=== PATIENT | female | born 1955 | race Caucasian/White ===

== ENCOUNTER 2024-06-09 12:51 | Outpatient (OUT) | payer MEDICARE, OTHER, SELFPAY ==
--- NOTE | 2024-06-09 | XR_ITS ---
The [address] [address] Patient Name: MICHELLE MEDRANO MRN: [id number] date: 1955 Sex: F Assigned Patient Location: Current Patient Location: Accession/Order Number: [id number] Exam Date: 06/09/2024 13:54 Report Date: 06/09/2024 13:55 At the request of: GABRIEL RDZ Procedure: XR lumbar spine min 4V LUMBAR SPINE - 4 views CLINICAL HISTORY: Low back pain for one week. COMPARISON: None FINDINGS: Levoscoliosis. Vertebral body heights appear maintained. Endplate and facet joint degenerative changes without significant disc height loss. SI joints demonstrate degenerative change. No pathological motion on flexion or extension views. XR/XR lumbar spine min 4V IMPRESSION: LEVOSCOLIOSIS WITH PREDOMINANTLY FACET JOINT DEGENERATIVE CHANGES. NO SIGNIFICANT DISC HEIGHT LOSS IS SEEN. Impression dictated by: Joaquín Powers Jr., DRichardsonORichardson06/09/2024 1:55 PM Dictation Location: [place] [address] Electronically authenticated by: [id number] Y Date: 06/09/2024 13:55
== END 2024-06-09 12:52 | disposition home or self-care (01) ==
LOC: EC 12:57
PROVIDERS: Visit Provider Physician Assistant
DX: M54.50 Low back pain, unspecified (principal); M51.369 Other intervertebral disc degeneration, lumbar region without mention of lumbar back pain or lower extremity pain
CPT/HCPCS: 72110